=== PATIENT | female | born 1995 | race Caucasian/White ===

== ENCOUNTER 2017-03-10 21:06 | Emergency (ER) | payer OTHER ==
[2017-03-10 22:26] VITALS: BP 108/65
== END 2017-03-10 22:26 | disposition home or self-care (01) ==
LOC: ED 21:06
DX: J02.9 Acute pharyngitis, unspecified (principal); G43.909 Migraine, unspecified, not intractable, without status migrainosus; J45.909 Unspecified asthma, uncomplicated
CPT/HCPCS: J1885; J2930

== ENCOUNTER 2017-04-03 20:32 | Emergency (ER) | payer OTHER ==
[2017-04-03 22:04] LABS: BASOPHIL % 0.4 % (0-2); PLATELET COUNT 279 x10^3mcL (130-400)
[2017-04-03 22:21] LABS: CARBON DIOXIDE 24.6 mmol/L (21-32); CHLORIDE SERUM 104 mmol/L (98-107); CREATININE SERUM 0.7 mg/dL (0.6-1.0); GFR1 > 60 mL/min; GLUCOSE SERUM 92 mg/dL (74-106); POTASSIUM SERUM 3.6 mmol/L (3.5-5.1); SODIUM SERUM 138 mmol/L (136-145)
[2017-04-03 22:26] LABS: ALBUMIN 3.4 g/dL (3.4-5.0); ALKALINE PHOSPHATASE 106 U/L (46-116); ALT/SGPT 30 U/L (14-59); AMYLASE 47 U/L (25-115); AST/SGOT 25 U/L (15-37); BILIRUBIN TOTAL 0.24 mg/dL (0.20-1.00); LIPASE 178 IU/L (73-393); TOTAL PROTEIN, SERUM 6.8 g/dL (6.4-8.2)
[2017-04-04] VITALS: BP 110/75
== END 2017-04-04 | disposition home or self-care (01) ==
LOC: ED 20:32
PROVIDERS: Emergency Medicine
DX: R10.13 Epigastric pain (principal)
CPT/HCPCS: 36415; 83880; Q0162

== ENCOUNTER 2017-06-19 20:21 | Emergency (ER) | payer OTHER ==
[~2017-06-19] VITALS: Ht 152.4 cm; Wt 66.7 kg
[2017-06-19 23:59] VITALS: BP 118/76
== END 2017-06-19 23:59 | disposition home or self-care (01) ==
LOC: ED 20:21
DX: R11.2 Nausea with vomiting, unspecified (principal)

== ENCOUNTER 2018-08-13 19:23 | Emergency (ER) | payer OTHER ==
[~2018-08-13] VITALS: Ht 154.9 cm; Wt 76.2 kg
[2018-08-13 20:02] VITALS: Ht 154.9 cm; Wt 76.2 kg
[2018-08-13 21:10] VITALS: BP 104/64
== END 2018-08-13 21:10 | disposition home or self-care (01) ==
LOC: ED 19:23
DX: G89.29 Other chronic pain (principal); M54.6 Pain in thoracic spine; N39.0 Urinary tract infection, site not specified; R51 Headache; J45.909 Unspecified asthma, uncomplicated

== ENCOUNTER 2018-11-13 18:54 | Emergency (ER) | payer OTHER ==
[~2018-11-13] VITALS: Ht 154.9 cm; Wt 74.8 kg
[2018-11-13 19:34] VITALS: Ht 154.9 cm; Wt 74.8 kg
[2018-11-13 21:04] VITALS: BP 122/60
== END 2018-11-13 21:04 | disposition home or self-care (01) ==
LOC: ED 18:54
DX: K64.4 Residual hemorrhoidal skin tags (principal); G43.909 Migraine, unspecified, not intractable, without status migrainosus; J45.909 Unspecified asthma, uncomplicated

== ENCOUNTER 2019-01-29 19:21 | Emergency (ER) | payer OTHER ==
[~2019-01-29] VITALS: Ht 154.9 cm; Wt 70.3 kg
[2019-01-29 19:47] VITALS: BP 98/67; Ht 154.9 cm; Wt 70.3 kg
== END 2019-01-29 20:37 | disposition home or self-care (01) ==
LOC: ED 19:21
DX: G43.909 Migraine, unspecified, not intractable, without status migrainosus (principal); J45.909 Unspecified asthma, uncomplicated; R19.7 Diarrhea, unspecified; R11.10 Vomiting, unspecified
CPT/HCPCS: J0780; J1885

== ENCOUNTER 2019-03-09 19:30 | Emergency (ER) | payer OTHER ==
[~2019-03-09] VITALS: Ht 154.9 cm; Wt 69.9 kg
[2019-03-09 20:13] VITALS: Ht 154.9 cm; Wt 69.9 kg
[2019-03-09 23:26] VITALS: BP 110/72
== END 2019-03-09 23:26 | disposition home or self-care (01) ==
LOC: ED 19:30
DX: J02.9 Acute pharyngitis, unspecified (principal)
CPT/HCPCS: J1100

== ENCOUNTER 2019-05-10 11:17 | Emergency (ER) | payer OTHER ==
[~2019-05-10] VITALS: Ht 154.9 cm; Wt 69.4 kg
[2019-05-10 11:28] VITALS: Ht 154.9 cm; Wt 69.4 kg
[2019-05-10 12:00] LABS: BASOPHIL % 0.5 % (0-2); PLATELET COUNT 330 x10^3mcL (130-400); RED CELL DISTRIBUTION WIDTH 13.1 % (11.5-14.5)
[2019-05-10 12:11] LABS: CALCIUM 8.6 mg/dL (8.5-10.1); CARBON DIOXIDE 25.7 mmol/L (21-32); CHLORIDE SERUM 103 mmol/L (98-107); CREATININE SERUM 0.6 mg/dL (0.6-1.0); GFR1 > 60 mL/min; GLUCOSE SERUM 108 mg/dL (74-106); SODIUM SERUM 138 mmol/L (136-145)
[2019-05-10 12:16] LABS: ALBUMIN 3.4 g/dL (3.4-5.0); ALKALINE PHOSPHATASE 109 U/L (46-116); ALT/SGPT 24 U/L (14-59); AST/SGOT 18 U/L (15-37); BILIRUBIN TOTAL 0.5 mg/dL (0.20-1.00); LIPASE 139 IU/L (73-393); TOTAL PROTEIN, SERUM 7.8 g/dL (6.4-8.2)
[2019-05-10 13:28] VITALS: BP 91/47
== END 2019-05-10 13:28 | disposition home or self-care (01) ==
LOC: ED 11:17
PROVIDERS: Emergency Medicine
DX: N39.0 Urinary tract infection, site not specified (principal); J45.909 Unspecified asthma, uncomplicated; G43.909 Migraine, unspecified, not intractable, without status migrainosus
CPT/HCPCS: J0696; J1885; J2405

== ENCOUNTER 2019-12-27 23:44 | Emergency (ER) | payer OTHER ==
[~2019-12-27] VITALS: Ht 154.9 cm; Wt 76.2 kg
[2019-12-28] VITALS: Ht 154.9 cm; Wt 76.2 kg
[2019-12-28 02:25] VITALS: BP 111/72
== END 2019-12-28 02:25 | disposition home or self-care (01) ==
LOC: ED 23:44
DX: J04.0 Acute laryngitis (principal); J45.909 Unspecified asthma, uncomplicated; G43.909 Migraine, unspecified, not intractable, without status migrainosus
CPT/HCPCS: J7512

== ENCOUNTER 2020-06-12 23:50 | Emergency (ER) | payer OTHER ==
[~2020-06-12] VITALS: Ht 162.6 cm; Wt 69.4 kg
[2020-06-12 23:59] VITALS: Ht 162.6 cm; Wt 69.4 kg
[2020-06-13 00:54] VITALS: BP 106/56
== END 2020-06-13 00:54 | disposition home or self-care (01) ==
LOC: ED 23:50
DX: G89.18 Other acute postprocedural pain (principal); J45.909 Unspecified asthma, uncomplicated; G43.909 Migraine, unspecified, not intractable, without status migrainosus

== ENCOUNTER 2020-07-09 18:31 | Emergency (ER) | payer OTHER ==
[~2020-07-09] VITALS: Ht 154.9 cm; Wt 73.5 kg
[2020-07-09 19:55] VITALS: BP 124/53
== END 2020-07-09 19:55 | disposition home or self-care (01) ==
LOC: ED 18:31
DX: B35.6 Tinea cruris (principal); J45.909 Unspecified asthma, uncomplicated; G43.909 Migraine, unspecified, not intractable, without status migrainosus